=== PATIENT | female | born 1955 | race Caucasian/White ===

== ENCOUNTER → 2018-05-17 | Outpatient (CLI) | payer BC | END | disposition home or self-care (01) | LOC: CFH 06:56 | PROVIDERS: ATTEND Nurse Practitioner Family | DX: Z12.31 Encounter for screening mammogram for malignant neoplasm of breast (principal) | CPT/HCPCS: 77063; 77067 ==

== ENCOUNTER → 2018-06-14 | Outpatient (CLI) | payer BC | END | disposition home or self-care (01) | LOC: RAD 13:50 | PROVIDERS: ATTEND Nurse Practitioner | DX: R05 Cough (principal) | CPT/HCPCS: 71250 ==